=== PATIENT | male | born 1950 | race Caucasian/White ===

== ENCOUNTER 2018-02-07 10:32 | Outpatient (CLI) ==
--- NOTE | 2018-02-07 11:25 | DI ---
EXAM: Three views of the right wrist. History: Right wrist pain and trauma. Findings: No acute fracture or dislocation. No abnormal calcifications or radiopaque foreign bodies . Joint spaces are relatively preserved. Impression: No acute osseous abnormality
== END 2018-02-07 10:33 | disposition home or self-care (01) ==
LOC: RAD 10:32
PROVIDERS: ATTEND Internal Medicine
DX: M25.531 Pain in right wrist (principal); W19.XXXA Unspecified fall, initial encounter

== ENCOUNTER 2018-10-13 17:17 | Emergency (ER) | payer OTHER ==
[2018-10-13 17:24] VITALS: BP 134/80; TEMP 97.1; BMI 33.0
--- NOTE | 2018-10-13 17:40 | ED.PDOC ---
General ED Provider: Dr. 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,Denies any pain,States that sqwelling is getting larger,Has an unimpeded mobility in right arm-forearm unit,Normal antecubital fossa,Neurovascular supply to r hand intact, Time Seen by Physician: 17:25 Mode of Arrival: Walk-In Information Source: Patient Exam Limitations: No limitations Primary Care Provider: MIKI SQUIRES Nursing and Triage Documentation Reviewed and Agree: Yes Does patient meet sepsis criteria?: No System Inflammatory Response Syndrome: Not Applicable Sepsis Protocol: For patient's 13 years and over: Temp is 96.8 and below OR 101 and greater Pulse >90 BPM Resp >20/minute Acutely Altered Mental Status Are patient's symptoms suggestive of a new infection, such as: -Pneumonia -Skin, Soft Tissue -Endocarditis -UTI -Bone, Joint Infection -Implantable Device -Acute Abdominal Infection -Wound Infection -Meningitis -Blood Stream Catheter Infection -Unknown Musculoskeletal Complaint Exam - Upper Extremity Complaint/Exam Location of Pain: Reports: Forearm Mechanism of Injury: Reports: Trauma Onset/Duration: today Symptoms Are: Still present Timing: Constant Episodes Lasting: Hours Initial Severity: Mild Current Severity: Mild Location: Reports: Discrete Character: Reports: Aching Aggravating: Reports: Movement Alleviating: Reports: Rest, Ice Non-Orthopedic Risk Factors: Reports: None DVT Risk Factors: Reports: None Related Surgical History: Reports: None Upper Extremity Findings: Present: Swelling NV Bundle Intact Distal to Injury: Yes Differential Diagnoses: Contusion, Closed Fracure Review of Systems - Review Of Systems Constitutional: Reports: No symptoms Eyes: Reports: No symptoms Ears, Nose, Mouth, Throat: Reports: No symptoms Respiratory: Reports: No symptoms Cardiac: Reports: No symptoms GI: Reports: No symptoms : Reports: No symptoms Musculoskeletal: Reports: Muscle pain, Muscle stiffness Skin: Reports: Bruising Neurological: Reports: No symptoms Endocrine: Reports: No symptoms Hematologic/Lymphatic: Reports: No symptoms All Other Systems: Reviewed and Negative Past Medical History - Past Medical History Previously Healthy: Yes Endocrine: Reports: None Cardiovascular: Reports: None Respiratory: Reports: None Hematological: Reports: None Gastrointestinal: Reports: None Genitourinary: Reports: None Neuro/Psych: Reports: None Musculoskeletal: Reports: Other Cancer: Reports: None - Surgical History General Surgical History: Reports: None - Family History Family History: Reports: None - Social History Smoking Status: Former smoker Hx Substance Use: No Alcohol Screening: Occasionally - Immunizations Tetanus Shot up to Date: Yes Physical Exam - Physical Exam Appearance: Well-appearing Ill-appearing: None Pain Distress: None Eyes: CARLOS ENT: Ears normal Neck: Supple Respiratory: Airway patent, Breath sounds clear Cardiovascular: RRR, Pulses normal, No rub GI/: Soft, Nontender, No masses Musculoskeletal: Normal strength, ROM intact Skin: Warm, Dry Neurological: Sensation intact Psychiatric: Affect appropriate Critical Care Note - Critical Care Note Total Time (mins): 0 Course - Course Orders, Labs, Meds: Orders Category Date Time Status Clindamycin HCl [Cleocin] MEDS 10/13/18 17:42 Discontinued 300 mg PO ONCE STA FOREARM, RIGHT 2 VIEWS Stat RADS 10/13/18 17:40 Completed Medications Discontinued Medications Generic Name Dose Route Start Last Admin Trade Name Cuong PRN Reason Stop Dose Admin Clindamycin HCl 300 mg 10/13/18 17:42 10/13/18 17:50 Cleocin PO 10/13/18 17:43 300 mg ONCE STA Administration Vital Signs: Temp Pulse Resp BP Pulse Ox 10/13/18 17:18 97.1 F L 87 20 134/80 65 L Departure - Departure Time of Disposition: 18:25 Disposition: HOME SELF-CARE Discharge Problem: Contusion Instructions: Hematoma (ED) Condition: Good Pt referred to PMD for follow-up: Yes (follow with PCO orn not better in 3 days ) IPMP verified?: No Additional Instructions: Clindamycin 300 mg tid x 10 days Allergies/Adverse Reactions: Allergies shrimp Adverse Reaction (Verified 10/13/18 17:25) Home Medications: Ambulatory Orders Atorvastatin Calcium 40 mg PO DAILY 10/13/18 Lisinopril 10 mg PO DAILY 10/13/18 Clifton-3/Dha/Epa/Fish Oil [Fish Oil 1,000 mg Softgel] 1 each PO BID 10/13/18 Disposition Discussed With: Patient, Family
[2018-10-13] MEDS ORDERED: CLEOCIN PO STA (17:42)
--- NOTE | 2018-10-13 17:59 | DI ---
EXAM: Right forearm two views CLINICAL HISTORY: Forearm pain after trauma. FINDINGS: No acute fractures or dislocations are seen. Surrounding soft tissues show swelling on th e ulnar aspect of the forearm. IMPRESSION: Ulnar soft tissue swelling
== END 2018-10-13 18:38 | disposition home or self-care (01) ==
LOC: ED 17:17
DX: S50.11XA Contusion of right forearm, initial encounter (principal); M79.89 Other specified soft tissue disorders
CPT/HCPCS: 99282